=== PATIENT | female | born 1995 | race Caucasian/White ===

== ENCOUNTER 2022-04-13 05:27 | Emergency (ER) | payer BC, SELFPAY ==
--- NOTE | ~2022-04-13 | CT_ITS ---
EXAMINATION: CT ABDOMEN AND PELVIS WITH CONTRAST CLINICAL INFORMATION: Periumbilical right lower quadrant pain COMPARISON: None TECHNIQUE: Multidetector volumetric images were obtained from the superior aspect of the liver through the pubic symphysis following administration 85 mL of Omnipaque 350 intravenous contrast. Sagittal and coronal reformatted images were obtained on the technologist's workstation. Oral contrast: No This CT examination was performed using dose optimization techniques as appropriate, variously including the following: *Automated exposure control *Adjustment of mA and/or kV according to patient size (this includes techniques or standardized protocols for targeted exams where dose is matched to indication/reason for exam; i.e. extremities or head) *Use of iterative reconstruction technique DLP: 656 mGy-cm FINDINGS: LUNG BASES: The visualized lung bases are unremarkable. LIVER, GALLBLADDER, AND BILIARY TREE: The liver is normal in size, shape, and attenuation. No focal hepatic lesion or biliary ductal dilatation is present. The gallbladder is unremarkable with no evidence of radiopaque gallstones, gallbladder wall thickening, or obvious pericholecystic inflammatory changes. PANCREAS: Unremarkable. SPLEEN: Unremarkable. ADRENAL GLANDS: Unremarkable. KIDNEYS AND URETERS: The kidneys are normal in size, shape, and attenuation. No hydronephrosis, hydroureter, or calculi seen. No perinephric stranding. BLADDER: Unremarkable. GASTROINTESTINAL TRACT: Prominent colonic fluid may be related to a diarrheal illness. No small bowel obstructive process or abnormal omental thickening. Focal distention of the appendix at 7 to 8 mm with slight haziness of the adjacent fat. Based on size criteria, early appendicitis is not excluded. Clinical correlation recommended. ABDOMINAL WALL: No significant hernia is appreciated. LYMPH NODES: No suspiciously enlarged adenopathy, with small nodes seen. VASCULAR: Unremarkable. PELVIC VISCERA: Left adnexal/ovarian cyst at 2.5 cm. OSSEOUS STRUCTURES: Unremarkable. CT/CT abdomen pelvis w IV con IMPRESSION: Prominent colonic fluid suggestive of a diarrheal illness. The appendix is focally distended at 7 to 8 mm with slight haziness of the adjacent fat. Based on size criteria, early appendicitis not excluded. Clinical correlation recommended. Left adnexal/ovarian cyst as noted above. Other incidental findings as described. Fleischner guidelines were followed.
[2022-04-13 05:35] VITALS: BP 129/84; PULSE 111; RESP 16; TEMP 36.9; O2SAT 96; BMI 34.9
[2022-04-13] MEDS: ondansetron HCL 4 MG/2 ML VIAL IVPUSH (06:28)
[2022-04-13] MEDS: 0.9 % Sodium Chloride 1,000 ML 999 ML IV (06:28)
--- NOTE | 2022-04-13 06:32 | ED_ITS ---
HPI - Nausea/Vomiting/Diarrhea General Chief complaint: Nausea/Vomiting/Diarrhea Stated complaint: weakness, vomiting, diarrhea Time Seen by Provider: 04/13/22 05:43 Source: patient Mode of arrival: ambulatory History of Present Illness HPI Narrative: 26-year-old female ate lunch yesterday at a [place] restaurant and then since that time states that she has had pretty significant mid upper abdominal discomfort with multiple episodes of nausea, vomiting, diarrhea. She states that the pain is constant and describes chills but denies any urinary symptoms. Patient states she is currently on her menstrual. Related Data Allergies Allergy/AdvReac Type Severity Reaction Status Date / Time No Known Allergies Allergy Verified 04/13/22 05:37 Review of Systems Review of Systems: Pertinent positives and negatives as stated in HPI [facility] Social History Social History Advance Directives: No Physical Exam Vital Signs: Vital Signs: Last Vital Signs Temp 98.4 F 04/13/22 05:35 Pulse 111 H 04/13/22 05:35 Resp 16 04/13/22 05:35 BP 129/84 04/13/22 05:35 Pulse Ox 96 04/13/22 05:35 O2 Del Method 04/13/22 05:35 BMI result Body Mass Index 34.9 VITAL SIGNS: Reviewed. GENERAL: Well developed, well nourished, in no acute distress. HEAD: Normocephalic/atraumatic EYES: PERRLA, EOMI LUNGS: Normal breath sounds. No adventitious sounds or accessory muscle use. SpO2<96> CARDIOVASCULAR: Regular rate and rhythm without noted murmurs ABDOMEN: Soft, periumbilical pain but pain is maximal in the right lower quadrant, non-distended with bowel sounds. MUSCULOSKELETAL: No tenderness, deformities, or effusions noted on gross inspection. EXTREMITIES: No cyanosis, clubbing or edema. SKIN: Inspection of the skin reveals no rashes NEUROLOGIC: Alert and oriented x 4. Strength and sensation to light touch were grossly intact x 4. Medications Administered Generic Name Dose Route Start Last Admin Trade Name Freq PRN Reason Stop Dose Admin Sodium Chloride 1,000 mls @ 999 mls/hr 04/13/22 05:45 04/13/22 06:28 Ns IV 04/13/22 06:45 999 mls/hr .Q1H1M VLADISLAV Administration Discontinued Medications Generic Name Dose Route Start Last Admin Trade Name Freq PRN Reason Stop Dose Admin Ondansetron HCl 4 mg 04/13/22 05:43 04/13/22 06:28 Ondansetron Hcl 4 Mg/2 Ml Vial IVPUSH 04/13/22 05:44 4 mg ONCE ONE Administration Medical Decision Making Medical Decision Making [facility] Narrative: 26-year-old female with history and clinical presentation suggestive of possible food poisoning, viral gastroenteritis, appendicitis and lower likelihood of ectopic. IV fluids, labs, antinausea medication, GI panel, UA/U preg, CT abdomen-pelvis Differential Diagnosis Please see the discussion above Discharge Plan Discharge Clinical Impression: Abdominal pain, Nausea, vomiting, and diarrhea Patient Disposition: Still a Patient
[2022-04-13 06:54] LABS: Hematocrit 46.9 % (37.0-47.0); Hemoglobin 15.4 g/dl (12.0-16.0); Mean Corpuscular HGB Conc 32.8 g/dl (31.0-35.0); Mean Corpuscular Hemoglobin 28.9 pg (27.0-33.0); Mean Corpuscular Volume 88.2 fL (80.0-98.0); Mean Platelet Volume 9.6 fL (9.4-12.3); Platelet Count 507 X10*3/uL (160-400); Red Blood Count 5.32 X10*6/uL (4.20-5.50); Red Cell Distribution Width 12.4 % (11.0-16.0); White Blood Count 15.4 X10*3/uL (4.8-10.8)
[2022-04-13 07:04] LABS: Alanine Aminotransferase 18 U/L (0-31); Albumin Level 4.5 g/dL (3.5-5.0); Alkaline Phosphatase 95 U/L (39-117); Anion Gap 18 (12-20); Aspartate Amino Transferase 17 U/L (5-31); Bilirubin Total 0.7 mg/dL (0.0-1.0); Blood Urea Nitrogen 18 mg/dL (9-16); Calcium 9.8 mg/dL (8.4-10.2); Carbon Dioxide 21 mmol/L (22-29); Chloride 105 mmol/L (96-108); Creatinine Clr Calc Pharmacy 99.1; Estimated Glomerular Filt Rate > 60; Glucose Random 143 mg/dL (60-115); Lipase 18 U/L (8-78); Potassium 4.8 mmol/L (3.3-5.1); Sodium 139 mmol/L (135-145); Total Protein 8.1 g/dL (6.5-8.0)
[2022-04-13 07:19] VITALS: BP 110/67; PULSE 96; RESP 17; TEMP 36.9; O2SAT 99
[2022-04-13 07:42] LABS: Neutrophils Percent Manual 83 % (45-73)
[2022-04-13 07:44] LABS: Band Neutrophils Percent 10 % (3-5); Basophils Abs Manual 0.2 X10*3/uL (0.0-0.2); Basophils Percent Manual 1 % (0-2); Lymphocytes Absolute Manual 0.5 X10*3/uL (1.2-4.9); Lymphocytes Percent Manual 3 % (20-40); Monocytes Absolute Manual 0.5 X10*3/uL (0.1-1.2); Monocytes Percent Manual 3 % (2-11); Neutrophils Absolute Manual 14.3 X10*3/uL (2.0-8.3)
[2022-04-13 07:45] LABS: Platelet Estimate INCREASED (NORMAL); Platelet Morphology Comment NORMAL; RBC Morphology NORMAL; Toxic Vacuolation PRESENT
[2022-04-13 08:04] LABS: Appearance Urine Clear; Color Urine Yellow; Glucose Urine UA Negative (Negative); Leukocyte Esterase Urine Negative (Negative); Nitrite Urine Negative (Negative); PH 5.5 (5.0-9.0); Specific Gravity - Urine >= 1.030 (1.005-1.025); UMIC TRIGGER UACC YES; Urine Blood Moderate (2+) (Negative); Urine Ketones Negative (Negative); Urine Protein Trace mg/dL (Neg-Trace)
[2022-04-13 08:16] LABS: Bacteria Urine None Seen (None Seen); Hyaline Casts Urine 0-2 /LPF (0-2); RBC Urine 0-2 /HPF (0-2); Squamous Epithelial Cell Urine 0-2 /HPF (0-2); WBC Urine 0-5 /HPF (0-5)
[2022-04-13 08:26] VITALS: BP 115/72; PULSE 92; RESP 16; TEMP 37.1; O2SAT 97
[2022-04-13 08:38] LABS: UPreg QC Valid YES; Urine Pregnancy NEGATIVE (NEGATIVE)
[2022-04-13] MEDS: iohexoL 350 MG/ML 100 ML INFUS..BTL 85 ML IV (08:45)
[2022-04-13 10:38] VITALS: BP 110/56; PULSE 95; RESP 16; TEMP 36.9; O2SAT 97
--- NOTE | 2022-04-13 11:01 | P.CONGS_ITS ---
History of Present Illness Consult details Consult date: 04/13/22 Reason for consult: abdominal pain Requesting physician: Ainsley Anders Narrative: 26-year-old female patient presenting with complaints of diarrhea, nausea, vomiting and abdominal pain. The diarrhea started shortly after eating [place] food yesterday. She reports multiple episodes of diarrhea followed by nausea and vomiting. She later developed the abdominal pain which he describes as intermittent coming in waves but not elicited by pressure on her abdomen. She denied fever or chills. She had no other sick contacts. She presented to the emergency department this morning and was noted to be tender in the right lower quadrant. Laboratories revealed an elevated WBC. CT abdomen and pelvis revealed a dilated fluid-filled colon consistent with diarrhea. Eighty mi nimally dilated appendix was identified with some stranding of the surrounding soft tissue. Acute appendicitis could not be ruled out by the scan. Surgical consultation was requested for evaluation of this possible early appendicitis. She denies a previous history of similar symptoms. Review of Systems Review of Systems: Yes all other systems are reviewed and are negative Constitutional: Constitutional: Denies chills, Denies fever(s), Denies headache(s), Denies poor appetite and Denies weakness ENT: Denies headache(s) Cardiovascular: Cardiovascular: Denies chest pain, Denies irregular heart rhythm, Denies palpitations and Denies dyspnea Respiratory: Respiratory: Denies cough, Denies excessive phlegm production and Denies dyspnea Gastrointestinal: Gastrointestinal: Reports abdominal pain, Denies bloating, Denies change in bowel habits, Denies constipation, Denies heartburn, Reports diarrhea, Reports nausea and Reports vomiting Genitourinary: Genitourinary: Denies urinary frequency Musculoskeletal: Musculoskeletal: Denies back pain, Denies muscle weakness and Denies numbness Integumentary/Breasts: Skin/Breast: Denies changing lesions and Denies unusual bruising Neurologic: Denies headache(s), Denies numbness, Denies paresthesias and Denies weakness Psychiatric: Psychiatric: Denies anxiety and Denies depression Endocrine: Endocrine: Denies palpitations Hematologic/Lymphatic: Hematologic/Lymphatic: Denies lymphadenopathy PMFSH Social History Social History Alcohol intake: never Smoked in Last 30 Days: No Use of substances other than those prescribed or required for medical reasons: No Advance Directives: No Patient : No Meds Allergies Allergy/AdvReac Type Severity Reaction Status Date / Time No Known Allergies Allergy Verified 04/13/22 05:37 Physical Exam Vital Signs: Vital Signs: Last Vital Signs Temp 98.4 F 04/13/22 10:38 Pulse 95 04/13/22 10:38 Resp 16 04/13/22 10:38 BP 110/56 L 04/13/22 10:38 Pulse Ox 97 04/13/22 10:38 O2 Del Method 04/13/22 10:38 BMI result Body Mass Index 34.9 Const: General: cooperative and no acute distress Nutritional Appearance: well nourished Orientation/consciousness: patient oriented x3 Limitations: no limitations HEENT: Head: Yes normocephalic and Yes atraumatic Ears: hearing grossly normal bilaterally Resp: Effort & Inspection: normal respiratory effort, no audible wheezes, no cough and no respiratory distress Cardio: Jugular venous distension: no JVD GI: Other: Deep palpation in the right lower quadrant is negative for tenderness. There is a negative Rovsing sign. Inspection: Yes normal to inspection Palpation (GI): Soft to palpation, nontender, no guarding and not rigid Percussion: Yes normal to percussion Auscultation: normal bowel sounds Rectal Exam - Female: deferred Skin: Other: Warm, dry, no rash Neuro: General: patient oriented x3 Extrem: General: Yes no clubbing, cyanosis or edema Results Labs 04/13/22 06:32 04/13/22 06:32 Labs: Abnormal lab results 04/13/22 04/13/22 04/13/22 Range/Units 06:32 06:32 07:56 WBC 15.4 H (4.8-10.8) X10*3/uL Plt Count 507 H (160-400) X10*3/uL Neutrophils % (Manual) 83 H (45-73) % Band Neutrophils % 10 H (3-5) % Lymphocytes % (Manual) 3 L (20-40) % Abs Neuts (Manual) 14.3 H (2.0-8.3) X10*3/uL Lymphocytes # (Manual) 0.5 L (1.2-4.9) X10*3/uL Carbon Dioxide 21 L (22-29) mmol/L BUN 18 H (9-16) mg/dL Random Glucose 143 H (60-115) mg/dL Total Protein 8.1 H (6.5-8.0) g/dL Ur Specific [place] >= 1.030 H (1.005-1.025) Urine Blood Moderate (2+) H (Negative) Short CBC 04/13/22 Range/Units 06:32 WBC 15.4 H (4.8-10.8) X10*3/uL Hgb 15.4 (12.0-16.0) g/dl Hct 46.9 (37.0-47.0) % Plt Count 507 H (160-400) X10*3/uL BMP 04/13/22 06:32 Sodium 139 Potassium 4.8 Chloride 105 Carbon Dioxide 21 L BUN 18 H Creatinine 0.86 Calcium 9.8 Liver Function 04/13/22 Range/Units 06:32 Total Bilirubin 0.7 (0.0-1.0) mg/dL AST 17 (5-31) U/L ALT 18 (0-31) U/L Alkaline Phosphatase 95 (39-117) U/L Albumin 4.5 (3.5-5.0) g/dL Urine 04/13/22 04/13/22 Range/Units 07:56 Unknown Urine Color Yellow Urine Appearance Clear Urine pH 5.5 (5.0-9.0) Ur Specific [place] >= 1.030 H (1.005-1.025) Urine Protein Trace (Neg-Trace) mg/dL Urine Glucose (UA) Negative (Negative) mg/dL Urine Test NEGATIVE (NEGATIVE) All other labs normal. Assessment and Plan (1) Abdominal pain: Status: Acute (2) Nausea, vomiting, and diarrhea: Status: Acute Plan 26-year-old female patient presenting with a recent onset of nausea, vomiting, diarrhea, and abdominal pain soon after eating [place] food. CT abdomen and pelvis does reveal a fluid-filled colon. The appendix is minimally dilated with some surrounding fat stranding. Acute appendicitis cannot be ruled out. On examination her abdomen is very benign with minimal to no tenderness in the right lower quadrant. No rebound, guarding, rigidity, or Rovsing sign is identified. Patient's clinical history and examination appear most consistent with food borne pathogen although very early appendicitis is certainly a possibility. Patient reports that she is able to tolerate liquids without nausea or vomiting. She should remain on liquids for now and advance as tolerated. I recommended starting antibiotics for the next week and suggested she follow up my office early next week. She should call sooner for increased pain. Time Spent With Patient Time: Total time managing care of this patient today __ 45 __ minutes. Procedures Date of Service Date of Service: 04/13/22
[2022-04-13 13:00] LABS: Campylobacter Not Detected (Not Detect.); Plesiomonas shigelloides Not Detected (Not Detect.); Salmonella Not Detected (Not Detect.); Vibrio Not Detected (Not Detect.); Vibrio Cholerae Not Detected (Not Detect.)
[2022-04-13 13:01] LABS: Adenovirus F 40/41 Not Detected (Not Detect.); Astrovirus Not Detected (Not Detect.); Cryptosporidium Not Detected (Not Detect.); Cyclospora cayetanensis Not Detected (Not Detect.); E. coli EAEC Not Detected (Not Detect.); E. coli EPEC Not Detected (Not Detect.); E. coli ETEC Not Detected (Not Detect.); E. coli STEC Not Detected (Not Detect.); Entamoeba histolytica Not Detected (Not Detect.); Giardia lamblia Not Detected (Not Detect.); Rotavirus A Not Detected (Not Detect.); Sapovirus Not Detected (Not Detect.); Shigella sp./EIEC Not Detected (Not Detect.); Yersinia enterocolitica Not Detected (Not Detect.)
[2022-04-13 13:04] LABS: Norovirus GI/GII Detected (Not Detect.)
== END 2022-04-13 12:14 | disposition home or self-care (01) ==
PROVIDERS: Emergency Provider Student in an Organized Health Care Education/Training Program
DX: R19.7 Diarrhea, unspecified (principal); R11.2 Nausea with vomiting, unspecified; D72.829 Elevated white blood cell count, unspecified; R10.30 Lower abdominal pain, unspecified
CPT/HCPCS: 36415; 74177; 80053; 81001; 81025; 83690; 85007; 85025; 85027; 87507; 96361; 96374; 99284; J2405; Q9967

== ENCOUNTER → 2022-04-20 10:25 | Outpatient (BNVA) | payer BC, SELFPAY | PROVIDERS: PCP Internal Medicine; Visit Provider Surgery | DX: Z13.89 Encounter for screening for other disorder (principal) ==

== ENCOUNTER 2024-11-15 14:28 | Outpatient (REF) | payer OTHER, SELFPAY ==
--- NOTE | 2024-11-15 14:33 | EMG_ITS ---
Chief complaint: Numbness in bottom of feet associated with long distance driving. No feet pain or weakness or lower back pain. Occasional tingling on both hands, associated with position during sleep. No neck pain or weakness. Reason for referral: Evaluate for neuropathy Referred by: Dr. Mantilla Procedure done: Bilateral upper and lower extremity NCS/EMG Precautions and/or limitations: None The limb temperature was monitored continuously and remained between 32-36 degrees C during the performance of the NCS. Nerve Conduction Studies Anti Sensory Summary Table ?Stim Site NR Onset (ms) Norm Onset (ms) Peak (ms) Norm Peak (ms) O-P Amp (?V) Norm O-P Amp Site1 Site2 Delta-0 (ms) Dist (cm) Dejan (m/s) Norm Dejan (m/s) Left Median Anti Sensory (2nd Digit) Wrist ? 2.3 2.9 <3.6 110.2 >10 Wrist 2nd Digit 2.3 14.0 61 Right Median Anti Sensory (2nd Digit) Wrist ? 2.3 2.9 <3.6 78.6 >10 Wrist 2nd Digit 2.3 14.0 61 Left Sural Anti Sensory (Lat Mall) Calf ? 2.7 3.4 <4.0 39.1 >5.0 Calf Lat Mall 2.7 14.0 52 Right Sural Anti Sensory (Lat Mall) Calf ? 2.9 3.5 <4.0 27.3 >5.0 Calf Lat Mall 2.9 14.0 48 Left Ulnar Anti Sensory (5th Digit) Wrist ? 2.1 2.6 <3.7 95.6 >15.0 Wrist 5th Digit 2.1 14.0 67 Right Ulnar Anti Sensory (5th Digit) Wrist ? 2.3 2.8 <3.7 82.1 >15.0 Wrist 5th Digit 2.3 14.0 61 Motor Summary Table ?Stim Site NR Onset (ms) Norm Onset (ms) O-P Amp (mV) Norm O-P Amp iAmp (mV) Amp (1st) (%) Site1 Site2 Delta-0 (ms) Dist (cm) Dejan (m/s) Norm Dejan (m/s) Left Median Motor (Abd Poll Brev) Wrist ? 2.6 <3.9 11.1 >4.5 14.0 100.0 Elbow Wrist 3.3 19.0 58 >45 Elbow ? 5.9 11.4 13.9 102.7 Right Median Motor (Abd Poll Brev) Wrist ? 2.6 <3.9 12.7 >4.5 15.0 100.0 Elbow Wrist 3.5 20.0 57 >45 Elbow ? 6.1 12.0 14.3 94.5 Right Peroneal Motor (Ext Dig Brev) Ankle ? 4.0 <4.0 9.7 >2.5 13.0 100.0 Ankle Ext Dig Brev 4.0 0.0 B Fib ? 9.3 9.4 12.3 96.9 B Fib Ankle 5.3 28.5 54 >40 Poplt ? 9.9 9.8 12.8 101.0 Poplt B Fib 0.6 5.0 83 >40 Left Tibial Motor (Abd Gupta Brev) Ankle ? 3.6 <5 10.3 >2.5 15.6 100.0 Ankle Abd Gupta Brev 3.6 0.0 Knee ? 9.6 8.5 13.6 82.5 Knee Ankle 6.0 33.0 55 >40 Right Tibial Motor (Abd Gupta Brev) Ankle ? 3.6 <5 14.5 >2.5 22.3 100.0 Ankle Abd Gupta Brev 3.6 0.0 Knee ? 10.5 12.5 18.2 86.2 Knee Ankle 6.9 37.0 54 >40 Left Ulnar Motor (Abd Dig Minimi) Wrist ? 2.4 <3.0 5.7 >5 6.5 100.0 B Elbow Wrist 2.7 17.0 63 >45 B Elbow ? 5.1 5.6 6.4 98.2 A Elbow B Elbow 1.4 10.0 71 >45 A Elbow ? 6.5 5.2 6.2 91.2 Right Ulnar Motor (Abd Dig Minimi) Wrist ? 2.5 <3.0 8.3 >5 9.0 100.0 B Elbow Wrist 2.7 18.5 69 >45 B Elbow ? 5.2 7.8 8.6 94.0 A Elbow B Elbow 1.3 10.0 77 >45 A Elbow ? 6.5 7.6 8.6 91.6 EMG ?Side Muscle Nerve Root Ins Act Fibs Psw Amp Dur Poly Recrt Int Pat Comment Right 1stDorInt Ulnar C8-T1 Nml Nml Nml Nml Nml 0 Nml Complete Right FlexCarRad Median C6-7 Nml Nml Nml Nml Nml 0 Nml Complete Right Biceps Musculocut C5-6 Nml Nml Nml Nml Nml 0 Nml Complete Right Triceps Radial C6-7-8 Nml Nml Nml Nml Nml 0 Nml Complete Right Deltoid Axillary C5-6 Nml Nml Nml Nml Nml 0 Nml Complete Left 1stDorInt Ulnar C8-T1 Nml Nml Nml Nml Nml 0 Nml Complete Left FlexCarRad Median C6-7 Nml Nml Nml Nml Nml 0 Nml Complete Left Biceps Musculocut C5-6 Nml Nml Nml Nml Nml 0 Nml Complete Left Triceps Radial C6-7-8 Nml Nml Nml Nml Nml 0 Nml Complete Left Deltoid Axillary C5-6 Nml Nml Nml Nml Nml 0 Nml Complete Right AbdHallucis MedPlantar S1-2 Nml Nml Nml Nml Nml 0 Nml Complete Right AntTibialis Dp Br Peron L4-5 Nml Nml Nml Nml Nml 0 Nml Complete Right PostTibialis Tibial L5, S1 Nml Nml Nml Nml Nml 0 Nml Complete Right MedGastroc Tibial S1-2 Nml Nml Nml Nml Nml 0 Nml Complete Right VastusMed Femoral L2-4 Nml Nml Nml Nml Nml 0 Nml Complete Left AbdHallucis MedPlantar S1-2 Nml Nml Nml Nml Nml 0 Nml Complete Left AntTibialis Dp Br Peron L4-5 Nml Nml Nml Nml Nml 0 Nml Complete Left PostTibialis Tibial L5, S1 Nml Nml Nml Nml Nml 0 Nml Complete Left MedGastroc Tibial S1-2 Nml Nml Nml Nml Nml 0 Nml Complete Left VastusMed Femoral L2-4 Nml Nml Nml Nml Nml 0 Nml Complete FINDINGS: All motor and sensory nerves tested showed normal latencies, amplitudes and conduction velocities. Concentric needle EMG was performed in selected muscles of the bilateral upper and lower extremities. Study did not reveal signs of electric abnormalities as shown in the table above. IMPRESSION: 1. This is a normal study. 2. There is no electrodiagnostic evidence for median neuropathy, ulnar neuropathy, brachial plexopathy, or cervical radiculopathy, peroneal neuropathy, tibial neuropathy, lumbosacral plexopathy, lumbar radiculopathy, or peripheral neuropathy. Thank you for your kind referral. Julia Kelly MD, SEVERIANO Board Certified, [place] [employer] and [employer] (ABPMR) Board Certified, [place] [employer] Electrodiagnostic [employer] (ABEM) CODIN [id number] x 4 MTDD
== END 2024-11-15 14:29 | disposition home or self-care (01) ==
LOC: HO.NEURO 14:28
PROVIDERS: Visit Provider Student in an Organized Health Care Education/Training Program
DX: R20.2 Paresthesia of skin (principal)
CPT/HCPCS: 95886; 95913

== ENCOUNTER → 2024-11-15 14:33 | Outpatient (BNV) | payer OTHER, SELFPAY | PROVIDERS: Visit Provider Physical Medicine & Rehabilitation | DX: R20.2 Paresthesia of skin (principal) | CPT/HCPCS: 95886; 95913 ==